=== PATIENT | female | born 1930 | race Caucasian/White ===

== ENCOUNTER 2018-05-29 14:30 | Inpatient (IN) | payer MEDICARE, OTHER ==
[2018-05-29] MEDS ORDERED: Levofloxacin 750 MG IVPREMIX(* 750 MG/150 ML BAG IVPB ONE (14:45)
[2018-05-29] MEDS ORDERED: cefTRIAXone(*) 1 GM in NS 0.9% 50 ML* 50 ML IVPB ONE (14:45)
[2018-05-29] MEDS ORDERED: NS 0.9% 1000 ML** 1,000 ML IV ONE (14:47)
[2018-05-29 15:09] LABS: ABS Basophils 0.1 10^3/ul (0-0.2); ABS Eosinophils 0.1 10^3/ul (0-0.6); ABS Lymphocytes 2.3 10^3/ul (1.0-4.8); ABS Neutrophils 12.2 10^3/ul (1.5-7.7); ABS Nucleated RBC 0 10^3/ul; Eosinophil % 0.6 %; Hematocrit 40 % (33-41); Hemoglobin 13.3 g/dL (12.0-16.0); Lymphocyte % 14.8 %; Mean Corpuscular HGB Conc 34 g/dL (31-36); Mean Corpuscular Hemoglobin 31 pg (27-31); Mean Corpuscular Volume 94 fL (80-97); Mean Platelet Volume 6.9 fL (7.4-10.4); Nucleated Red Blood Cells % 0; Platelet Count 393 10^3/uL (150-450); Red Blood Count 4.23 10^6 /uL (3.70-4.87); Red Cell Distribution Width 13 % (10.5-15); White Blood Count 15.7 10^3/uL (3.5-10.8)
--- NOTE | 2018-05-29 15:12 | ED ---
Shortness of Breath - HPI Summary HPI Summary: This patient is an 87 year old F brought in by EMS with a chief complaint of SOB since yesterday. Patient reports back pain, diaphoresis, and weakness. Patient denies CP or palpitations. The patient is normally very active, but is now weak and tired easily. She has been using her husbands inhaler to treat her breathing difficulties. No PMHx asthma, COPD, CHF. - History of Current Complaint Chief Complaint: EDShortnessOfBreath Time Seen by Provider: 05/29/18 14:39 Hx Obtained From: Patient, EMS Onset/Duration: Gradual Onset, Lasting Days Dyspnea At: Rest Associated Signs & Symptoms: Diaphoresis - Allergy/Home Medications Allergies/Adverse Reactions: Allergies Allergy/AdvReac Type Severity Reaction Status Date / Time No Known Allergies Allergy Verified 05/29/18 14:49 Home Medications: Home Medications Amiodarone TAB* [Cordarone TAB*] 200 mg PO DAILY 05/29/18 [History Confirmed 08/11] Ascorbic Acid TAB* [Vitamin C TAB*] 500 mg PO DAILY 05/29/18 [History Confirmed 05/29/18] Aspirin 81 mg CHEW TAB* [Aspirin Low Dose TAB*] 81 mg PO DAILY 05/29/18 [ History Confirmed 05/29/18] Cholecalciferol TAB* [Vitamin D TAB*] 2,000 units PO DAILY 05/29/18 [History Confirmed 05/29/18] Furosemide TAB* [Lasix TAB*] 20 mg PO DAILY 05/29/18 [History Confirmed 05/29/18 ] Garlic 200 mg PO DAILY 05/29/18 [History Confirmed 05/29/18] Garlic [Odorless Garlic] 300 mg PO DAILY 05/29/18 [History Confirmed 05/29/18] Isosorbide Dinitrate TAB* [Isordil TAB*] 10 mg PO BID 05/29/18 [History Confirmed 05/29/18] Krill/Om-3/Dha/Epa/Phospho/Ast [Krill Oil 500 mg] 1 cap PO DAILY 05/29/18 [ History Confirmed 05/29/18] Mirabegron (NF) [Myrbetriq (NF)] 50 mg PO DAILY 05/29/18 [History Confirmed 08/11] Multivitamins/Minerals TAB* [Theragran/minerals TAB*] 1 tab PO DAILY 05/29/18 [ History Confirmed 05/29/18] Potassium Chloride LIQUID* [Klor-Con LIQUID*] 20 meq PO DAILY 05/29/18 [History Confirmed 05/29/18] Ubidecarenone [Coq10] 100 mg PO DAILY 05/29/18 [History Confirmed 05/29/18] dilTIAZem HCl [Dilt-Xr] 240 mg PO DAILY 05/29/18 [History Confirmed 05/29/18] PMH/Surg Hx/FS Hx/Imm Hx Cardiovascular History: Denies: Hx Congestive Heart Failure Respiratory History: Denies: Hx Asthma, Hx Chronic Obstructive Pulmonary Disease (COPD) Musculoskeletal History: Reports: Hx Scoliosis Infectious Disease History: No Infectious Disease History: Denies: Traveled Outside the [place] in Last 30 Days - Family History Known Family History: Positive: Non-Contributory - Social History Lives: With Family Review of Systems Positive: Skin Diaphoresis Positive: Shortness Of Breath Positive: Myalgia - back pain Positive: Weakness All Other Systems Reviewed And Are Negative: Yes Physical Exam - Summary Physical Exam Summary: VITAL SIGNS: Reviewed. GENERAL: Patient is a well-developed and nourished female who is lying comfortable in the stretcher. Patient is in acute respiratory distress. She is unable to speak in full sentences. HEAD AND FACE: No signs of trauma. No ecchymosis, hematomas or skull depressions. No sinus tenderness. EYES: PERRLA, EOMI x 2, No injected conjunctiva, no nystagmus. EARS: Hearing grossly intact. Ear canals and tympanic membranes are within normal limits. MOUTH: Oropharynx within normal limits. NECK: Supple, trachea is midline, no adenopathy, no JVD, no carotid bruit, no c- spine tenderness, neck with full ROM. CHEST: Symmetric, no tenderness at palpation LUNGS: Clear to auscultation bilaterally. Bilateral crackles and decreased breath sounds. O2 sat in the upper 80s. CVS: Regular rate and rhythm, S1 and S2 present, no murmurs or gallops appreciated. ABDOMEN: Soft, non-tender. No signs of distention. No rebound no guarding, and no masses palpated. Bowel sounds are normal. EXTREMITIES: FROM in all major joints, no edema, no cyanosis or clubbing. NEURO: Alert and oriented x 3. No acute neurological deficits. Speech is normal and follows commands. SKIN: Diaphoretic, clammy. Triage Information Reviewed: Yes Vital Signs On Initial Exam: Initial Vitals Temp Pulse Resp BP Pulse Ox 97.5 F 98 30 195/107 93 05/29/18 14:32 05/29/18 14:32 05/29/18 14:32 05/29/18 14:32 05/29/18 14:32 Vital Signs Reviewed: Yes Diagnostics - Vital Signs Vital Signs Temp Pulse Resp BP Pulse Ox 05/29/18 14:32 97.5 F 98 30 195/107 93 - Laboratory Lab Results: Lab Results 05/29/18 05/29/18 Range/Units 14:42 14:54 WBC 15.7 H (3.5-10.8) 10^3/uL RBC 4.23 (3.70-4.87) 10^6 /uL Hgb 13.3 (12.0-16.0) g/dL Hct 40 (33-41) % MCV 94 (80-97) fL MCH 31 (27-31) pg MCHC 34 (31-36) g/dL RDW 13 (10.5-15) % Plt Count 393 (150-450) 10^3/uL MPV 6.9 L (7.4-10.4) fL Neut % (Auto) 77.8 % Lymph % (Auto) 14.8 % Leslie % (Auto) 6.2 % Eos % (Auto) 0.6 % Baso % (Auto) 0.6 % Absolute Neuts (auto) 12.2 H (1.5-7.7) 10^3/ul Absolute Lymphs (auto) 2.3 (1.0-4.8) 10^3/ul Absolute Monos (auto) 1.0 H (0-0.8) 10^3/ul Absolute Eos (auto) 0.1 (0-0.6) 10^3/ul Absolute Basos (auto) 0.1 (0-0.2) 10^3/ul Absolute Nucleated RBC 0 10^3/ul Nucleated RBC % 0 ABG pH 7.34 L (7.35-7.45) ABG pCO2 41 (35-45) mmHg ABG pO2 83 (80-100) mmHg ABG HCO3 22.2 (19-31) mmol/L ABG O2 Saturation 98.2 H (94.0-98.0) % ABG Base Excess -3.5 L (-2.0-2.0) mmol/L Result Diagrams: 05/29/18 14:54 05/29/18 14:54 Lab Statement: Any lab studies that have been ordered have been reviewed, and results considered in the medical decision making process. - Radiology CXR Radiology Interpretation Completed By: Radiologist Summary of Radiographic Findings: Interval appearance of bilateral patchy lung densities could be seen in the. setting of pulmonary edema or multifocal pneumonia. ED physician has reviewed this report. - EKG 14:37 Cardiac Rate: NL - 98 bpm EKG Rhythm: Sinus Rhythm Summary of EKG Findings: LBBB Course/Dx - Course Assessment/Plan: Patient is an 87-year-old female who presents to the emergency department via ambulance with chief complaint of shortness of breath. Patient reports that shes been having these symptoms for the last couple days. The patient has been using her husbands albuterol for the last couple days with no improvement of symptoms. She reports no history of COPD, asthma, or CHF. In the ED course the patient is very short of breath and unable to speak in full sentences. Patient has bilateral crackles. Initially the patient was placed in the facemask and placed on a monitor. The patient continues to have shortness of breath therefore I placed the patient in a BiPAP machine. The patient still alert and oriented 3. Test results shows a the services of 15.7 , PTT of 25.7, d-dimer is 492, glucose 180, CRP 126 and BNP of 960. The chest x -ray impression: Interval appearance of bilateral patchy lung densities could be seen in the. setting of pulmonary edema or multifocal pneumonia. I suspect that the patient also has pneumonia therefore I placed the patient on Levaquin and Rocephin, I gave Lasix since I believe that the patient also has a CHF exacerbation. I discussed my physical exam, findings and test results with Dr. Alfredo from the hospitalist services and he agrees to admit patient to his services. Patient is hemodynamically stable alert and oriented x 3. - Diagnoses Provider Diagnoses: Bilateral pneumonia, CHF exacerbation, Respiratory distress, Elevated troponin - Physician Notifications Discussed Care of Patient With: Marek Alfredo Time Discussed With Above Provider: 16:10 Instructed by Provider To: Admit As Inpatient - Critical Care Time Critical Care Time: 75-104 min Discharge - Sign-Out/Discharge Documenting (check all that apply): Patient Departure - admission Patient Received Moderate/Deep Sedation with Procedure: No - Discharge Plan Condition: Fair Disposition: ADMITTED TO [facility] - Billing Disposition and Condition Condition: FAIR Disposition: Admitted to [facility] - Attestation Statements Document Initiated by Scribe: Yes Documenting Scribe: Alan Butt Provider For Whom Scribe is Documenting (Include Credential): Lukasz Martinez MD Scribe Attestation: Alan Tellez, scribed for Lukasz Martinez MD on 05/29/18 at 1830. Scribe Documentation Reviewed: Yes Provider Attestation: The documentation as recorded by the Alan torres accurately reflects the service I personally performed and the decisions made by Lukasz weber MD Status of Scribe Document: Viewed
[2018-05-29 15:17] LABS: Activated Partial Thrombo Time 25.7 seconds (26.0-36.3); INR 0.97 (0.77-1.02)
[2018-05-29 15:26] LABS: ALT 30 U/L (7-52); AST 31 U/L (13-39); Albumin/Globulin Ratio 1.1 (1-3); Alkaline Phosphatase 85 U/L (34-104); Anion Gap 11 mmol/L (2-11); BUN/Creatinine Ratio 22.1 (8-20); Blood Urea Nitrogen 15 mg/dL (6-24); C Reactive Protein 126.96 mg/L (<8.01); CO2 Carbon Dioxide 23 mmol/L (22-32); Calcium 9.3 mg/dL (8.6-10.3); Chloride 104 mmol/L (101-111); Creatine Kinase 66 U/L (10-223); EGFR African American 99.5 (>60); EGFR Non-African American 82.2 (>60); Globulin 3.6 g/dL (2-4); Glucose 180 mg/dL (70-100); Potassium 4.2 mmol/L (3.5-5.0); Sodium 138 mmol/L (135-145); Total Protein 7.6 g/dL (6.4-8.9)
[2018-05-29 15:30] LABS: CKMB ng/mL 2.2 ng/mL (0.6-6.3)
[2018-05-29 15:32] LABS: Troponin I 0.04 ng/mL (<0.04)
[2018-05-29] MEDS ORDERED: Furosemide IV* 10 MG/ML VIAL (40 MG) IV ONE (15:33)
[2018-05-29] MEDS ORDERED: Aspirin 81 mg CHEW TAB* 81 MG TAB.CHEW PO ONE (15:36)
[2018-05-29 17:38] LABS: Magnesium 2.1 mg/dL (1.9-2.7)
[2018-05-29] MEDS: Amiodarone TAB* 200 MG PO SCH (19:54)
[2018-05-29] MEDS: Metoprolol Tartrate TAB* 25 MG PO SCH ×2 (19:54→23:16)
[2018-05-29] MEDS: Enoxaparin(*) 40 MG/0.4 ML SYR SUBCUT SCH (19:56)
[2018-05-29] MEDS ORDERED: Dextrose 50% Syringe 50 ML* 25 GM/50 ML SYRINGE IV PUSH PRN (20:00)
[2018-05-29 20:33] LABS: Influenza A Molecular NEGATIVE (Negative); Influenza B Molecular NEGATIVE (Negative)
[2018-05-29] MEDS ORDERED: Furosemide IV* 10 MG/ML VIAL (40 MG) IV SCH (21:00)
[2018-05-29 21:01] LABS: Troponin I 0.66 ng/mL (<0.04)
[2018-05-29] MEDS: PTO: Mirabegron (NF) 50 MG TAB PO SCH (22:01)
[2018-05-29] MEDS: Isosorbide Dinitrate TAB* 10 MG PO SCH (22:07)
--- NOTE | 2018-05-29 22:55 | HP ---
HISTORY AND PHYSICAL: DATE OF ADMISSION: 05/29/18 ATTENDING PROVIDER: Marek Alfredo MD PRIMARY CARE PROVIDER: Dr. Juno Silva. OUTPATIENT BOILER TUBE REAMER: Dr. Julio C Calvert. CHIEF COMPLAINT: Shortness of breath. HISTORY OF PRESENT ILLNESS: Yesenia Rose is an 87-year-old female with past medical history of hypertension, arrhythmia (unknown) but recently 3 months ago started on amiodarone 200 mg daily. She was in her usual state of health but had some poor sleep the night prior to admission and just was not quite feeling right. On the day of admission, she had progressive shortness of breath that seems to come on rather suddenly though she is a somewhat unclear historian on this matter. She denies any fevers, but did have chills this morning. No sick contacts. She did get a flu shot. She tried to use her 's albuterol inhaler and that gave her a little bit of relief. She denied any palpitations or chest pain. No nausea, vomiting. History is somewhat limited that she is currently on a CPAP mask, but she reports that she may have felt diaphoretic. Upon presentation to the [facility] Room, blood pressure 195/107, was satting 93% on room air, put on 10 L oxygen given her respiratory rates in the mid 30s and increased work of breathing. Reportedly in the field, she was 84% on room air. She was put on BiPAP with some relief. She had labs, which indicated leukocytosis of 15.7, elevated D-dimer of 492, elevated BNP of 960, elevated CRP of 126.9. Troponin 0.04. Glucose of 180. She had an ABG, this was prior to BIPAP, with a pH of 7.34, pCO2 of 41, pO2 of 83, bicarb of 22. She had a chest x-ray. Images not currently available as PACS is down, but Radiology impression of an overall appearance of bilateral patchy lung densities , could be seen in the setting of pulmonary edema or multifocal pneumonia. She was started on ceftriaxone and Levaquin, given 40 mg of IV Lasix and referred to hospitalist service for admission for acute hypoxic respiratory failure. She follows up with Dr. Julio C Calvert, her mis manager, last seen about 6 weeks. Last echo-cardiogram was approximately 6 months ago, but then she also reports that there has been some concern about what sounds like a potential aortic aneurysm and had a possible HANG, it sounds like about 1 month ago that was reportedly unconcerning with plan to repeat in about 6 months. She denies any chest pain, radiation to the back. No jaw pain. No numbness or tingling down the arms. She denies any abdominal pain, headaches, change in her weight though she does not record it. There is no leg edema. Denies any orthopnea. She said she is always tired and fatigued though that has not changed. She said she has sometimes little bit of swelling in her legs but that is also chronic over the last 10 years. She last saw Dr. Silva quite a while ago, it sounds like. Her A1c from 08/28/17 was 6.1. She denies knowledge of any congestive heart failure history, atrial fibrillation, any discussions potentially of anticoagulation. Also additional workup in the emergency room showed EKG with a left bundle-branch block. Prior was from 2011, which showed first-degree AV block. PAST MEDICAL HISTORY: Known past medical history is hypertension and potential arrhythmia ?AFib. MEDICATIONS: Include: 1. Diltiazem 240 mg daily. 2. Coenzyme Q10 100 mg p.o. daily. 3. Klor-Con 20 mEq p.o. daily. 4. Multivitamin 1 tab p.o. daily. 5. Myrbetriq 50 mg p.o. daily. 6. Krill oil 500 mg p.o. daily. 7. Isosorbide dinitrate 20 mg p.o. daily. 8. Garlic 200 mg p.o. daily. 9. Lasix 20 mg p.o. daily. 10. Cholecalciferol 2000 units p.o. daily. 11. Aspirin 81 mg daily. 12. Amiodarone 200 mg p.o. daily. 13. Ascorbic acid 500 mg p.o. daily. ALLERGIES: No known drug allergies. FAMILY HISTORY: Her mother had heart disease and CVAs, at age 89. Her father also of heart disease, age 77. Her brother of Parkinson's disease, age 85. Another brother had heart disease, at age 87. One sister at age 90 with end-stage renal disease. SOCIAL HISTORY: She is a never smoker, never drinker and no drug use. 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 She desires to be a DNR/DNI and her medical surrogate, she desires to be her daughter, Ioana Milton. REVIEW OF SYSTEMS: A complete 14-point review of systems is negative except as per HPI. She denies any palpitations, bladder and bowel movements, headaches, vision changes, long car rides, air travel, pain behind her legs. PHYSICAL EXAMINATION GENERAL APPEARANCE: No acute distress, but currently on a CPAP. VITAL SIGNS: Temperature 97.5, pulse rate 98, respiratory rate 30. Initially satting 84% on room air in the field and 97% on BiPAP 10/5. Blood pressure initially 195/107, currently 152/85. HEENT: Normocephalic, atraumatic. Pupils equally round and reactive to light. Extraocular movements intact. No scleral icterus. NECK: Supple. LUNGS: With bilateral rales at the bases. CARDIOVASCULAR: There is a 2/6 systolic ejection murmur, loudest at the right upper sternal border. No rubs or gallops. ABDOMEN: Soft, nontender, nondistended. No rebound, no guarding. No Mills's sign. EXTREMITIES: Warm and well perfused. No peripheral edema. NEUROLOGIC: Moving all extremities. Cranial nerves II through XII intact. Strength and sensation intact. SKIN: No lesions, no rashes. DIAGNOSTIC STUDIES/LAB DATA: White count 15.7, hemoglobin 13.3, hematocrit 40 , platelets 393. INR 0.97. D-dimer 492. ABG: pH 7.34, pCO2 41, pO2 83, bicarb 22.2. Sodium 138, potassium 4.2, chloride 104, carbon dioxide 23, BUN 15, creatinine 0.68, glucose 180, lactic acid 1.7, calcium 9.3. Total bilirubin 0.5, AST 31, ALT 30 , alk phos 85. Troponin 0.04. CRP 126.9. BNP 960. Albumin 4.0. Imaging: Chest x-ray images not currently available but impression by the radiologist of an overall appearance of bilateral patchy lung densities, could be seen in the setting of pulmonary edema or multifocal pneumonia. EKG with normal sinus rhythm, left bundle-branch block, QTc 514. Last for comparison was 2001with first-degree AV block. ASSESSMENT AND PLAN: Ms. Yesenia Rose is an 87-year-old female with past medical history of hypertension and unknown arrhythmia but recently started 3 months ago on amiodarone, presenting with acute hypoxic respiratory failure, evidence of congestive heart failure, also with leukocytosis. Some chills and bilateral patchy infiltrates, cannot exclude pneumonia, status post ceftriaxone , Levaquin in the emergency room. Continue ceftriaxone here. Get sputum cultures, legionella urine antigen, Strep pneumoniae, and urine antigen. Follow up blood cultures. She has gotten 40 of IV Lasix. She is going to continue 40 mg IV Lasix again later tonight and tomorrow morning. Strict I's and O's, daily weights. Request records from Dr. Julio C Calvert's office. She is going to get another echocardiogram tomorrow. She is currently requiring BiPAP. Hopefully with further diuresis, she can downgrade to OxyMask or nasal cannula. There is a consideration for possible, in the setting of relatively recent amiodarone administration, in the differential would include amiodarone pulmonary toxicity, but we will follow her clinical course with diuretics and antibiotics. Her D-dimer is elevated and could consider pulmonary embolism in the differential given the relatively acute nature of her symptoms. This will be further corroborated by any evidence of right heart strain on echocardiogram. She denies any long travel, history of clots, air flights, or immobility. For her elevated troponin, trend that q.4 hours x2 or till peak. Continue on telemetry. I am adding a magnesium level. No evidence of atrial fibrillation here. Request former EKGs from Dr. Calvert's office as well. For her hypertension, continue her diltiazem 240 mg, her isosorbide dinitrate 20 mg and the increased diuretics as above. We will continue her home aspirin 81 mg daily. She does attest that she had a left heart cath in the 70s with clear coronaries, but does have chronic changes with the left-bundle branch block on EKG and evidence of CHF obviously. She is a DNR/DNI. We will fill MOL[facility] paper with her. Medical surrogate is Ioana Milton. She can eat a heart healthy diet, putting her on Lovenox, DVT prophylaxis. [id number]/[facility] #: [id number] [facility]
[2018-05-29] MEDS ORDERED: Atorvastatin* 80 MG TAB PO ONE (23:00)
[2018-05-29] MEDS: Insulin LISPRO* 1 UNITS UNIT SUBCUT SCH (23:16)
[2018-05-30 02:54] LABS: Urine Appearance Cloudy; Urine Bacteria Absent (Absent); Urine Bilirubin Negative (Negative); Urine Blood 1+ (Negative); Urine Color Yellow; Urine Glucose Negative (Negative); Urine Ketones Negative (Negative); Urine Nitrite Negative (Negative); Urine Protein Negative (Negative); Urine Red Blood Cell 1+(3-5/hpf) (Absent); Urine Specific Gravity 1.011 (1.010-1.030); Urine Squamous Epithelial Cell Present (Absent); Urine Urobilinogen Negative (Negative); Urine White Blood Cell 3+(>20/hpf) (Absent)
[2018-05-30 05:37] LABS: ABS Basophils 0 10^3/ul (0-0.2); ABS Eosinophils 0 10^3/ul (0-0.6); ABS Lymphocytes 0.8 10^3/ul (1.0-4.8); ABS Monocytes 0.9 10^3/ul (0-0.8); ABS Neutrophils 8.2 10^3/ul (1.5-7.7); ABS Nucleated RBC 0 10^3/ul; Eosinophil % 0.2 %; Hematocrit 32 % (33-41); Hemoglobin 11.1 g/dL (12.0-16.0); Lymphocyte % 7.9 %; Mean Corpuscular HGB Conc 35 g/dL (31-36); Mean Corpuscular Hemoglobin 32 pg (27-31); Mean Corpuscular Volume 93 fL (80-97); Mean Platelet Volume 6.7 fL (7.4-10.4); Nucleated Red Blood Cells % 0; Platelet Count 277 10^3/uL (150-450); Red Blood Count 3.46 10^6 /uL (3.70-4.87); Red Cell Distribution Width 13 % (10.5-15)
[2018-05-30 05:55] LABS: Anion Gap 8 mmol/L (2-11); BUN/Creatinine Ratio 22.5 (8-20); Blood Urea Nitrogen 16 mg/dL (6-24); CO2 Carbon Dioxide 28 mmol/L (22-32); Calcium 8.4 mg/dL (8.6-10.3); Chloride 103 mmol/L (101-111); Cholesterol 145 mg/dL; EGFR African American 94.7 (>60); EGFR Non-African American 78.2 (>60); Glucose 102 mg/dL (70-100); HDL Cholesterol 60.2 mg/dL; LDL Cholesterol 71 mg/dL; Magnesium 1.9 mg/dL (1.9-2.7); Potassium 3.4 mmol/L (3.5-5.0); Sodium 139 mmol/L (135-145); Triglycerides 71 mg/dL
[2018-05-30 05:59] LABS: Troponin I 0.92 ng/mL (<0.04)
[2018-05-30] MEDS: Metoprolol Tartrate TAB* 25 MG PO SCH ×3 (06:42→17:20)
[2018-05-30] MEDS ORDERED: Magnesium Sulfate 1 GM IV* 1 GM/100 ML BAG IV ONE (07:14)
[2018-05-30] MEDS: Insulin LISPRO* 1 UNITS UNIT SUBCUT SCH ×4 (07:16→21:19)
[2018-05-30] MEDS: Furosemide IV* 10 MG/ML VIAL (40 MG) IV SCH (08:41)
[2018-05-30] MEDS: COENZYME Q10 100 MG PO SCH (08:42)
[2018-05-30] MEDS: Amiodarone TAB* 200 MG PO SCH (08:42)
[2018-05-30] MEDS: Aspirin 81 mg CHEW TAB* 81 MG TAB.CHEW PO SCH (08:42)
[2018-05-30] MEDS: Cholecalciferol TAB* 1000 UNITS PO SCH (08:42)
[2018-05-30] MEDS: Isosorbide Dinitrate TAB* 10 MG PO SCH ×2 (08:43→21:19)
[2018-05-30] MEDS: PTO: Mirabegron (NF) 50 MG TAB PO SCH (08:44)
[2018-05-30] MEDS ORDERED: Potassium Chloride LIQUID* 20 MEQ PACKET PO ONE (09:00)
[2018-05-30] MEDS ORDERED: Potassium Chloride LIQUID* 20 MEQ PACKET PO SCH (09:00)
[2018-05-30] MEDS ORDERED: Isosorbide Dinitrate TAB* 10 MG PO SCH (09:00)
--- NOTE | 2018-05-30 10:53 | PN ---
Subjective Date of Service: 05/30/18 Interval History: down to 3L, breathing much easier. Did not sleep much with the interruptions but denies orthopnea denies chest pain or chest pressure. Trop up to 0.92 then down. Records from Dr. Pearson: ECHO 04/08/17 with EF 60% G1DD, mod MR, Mod . Nuc stress 07/11/16 could not rule out small infarct area. LBBB chronic. Saw Dr. Pearson on 09/04/17. on amiodarone for PAT/ectopy since 06/18/17. Objective Active Medications: Amiodarone HCl (Cordarone Tab*) 200 mg PO DAILY [facility] Last Admin: 05/30/18 08:42 Dose: 200 mg Aspirin (Aspirin 81 Mg Chew Tab*) 81 mg PO DAILY [facility] Last Admin: 05/30/18 08:42 Dose: 81 mg Atorvastatin Calcium (Lipitor*) 80 mg PO 1700 [facility] Cholecalciferol (Vitamin D Tab*) 2,000 units PO DAILY [facility] Last Admin: 05/30/18 08:42 Dose: 2,000 units Coenzyme Q10 (Coenzyme Q10 (Nf)) 1 cap PO DAILY [facility] Last Admin: 05/30/18 08:42 Dose: Not Given Dextrose (D50w Syringe 50 Ml*) 12.5 gm IV PUSH .FOR FS < 60 - SS PRN PRN Reason: FS < 60 Enoxaparin Sodium (Lovenox(*)) 40 mg SUBCUT Q24H [facility] Last Admin: 05/29/18 19:56 Dose: 40 mg Furosemide (Lasix Iv*) 40 mg IV 2100 [facility] Last Admin: 05/29/18 22:04 Dose: 40 mg Furosemide (Lasix Iv*) 40 mg IV DAILY [facility] Last Admin: 05/30/18 08:41 Dose: 40 mg Ceftriaxone Sodium 1 gm/ (Sodium Chloride) 50 mls @ 200 mls/hr IVPB Q24H [facility] Insulin Human Lispro (Humalog*) 0 units SUBCUT ACHS [facility]; Protocol Last Admin: 05/30/18 07:16 Dose: Not Given Isosorbide Dinitrate (Isordil Tab*) 10 mg PO BID [facility] Last Admin: 05/30/18 08:43 Dose: 10 mg Metoprolol Tartrate (Lopressor Tab*) 25 mg PO Q6HR [facility] Last Admin: 05/30/18 06:42 Dose: 25 mg Mirabegron (Myrbetriq (Nf)) 50 mg PO DAILY [facility] Last Admin: 05/30/18 08:44 Dose: Not Given Potassium Chloride (Klor-Con Liquid*) 20 meq PO DAILY [facility] Vital Signs - 8 hr 05/30/18 05/30/18 05/30/18 04:38 07:25 07:37 Temperature 99.2 F 99.1 F Pulse Rate 64 58 Respiratory 18 20 18 Rate Blood Pressure 135/56 130/51 (mmHg) O2 Sat by Pulse 96 98 Oximetry Oxygen Devices in Use Now: Nasal Cannula, Venturi Mask Appearance: NAD, sitting in chair. Ears/Nose/Mouth/Throat: NL Teeth, Lips, Gums Neck: NL Appearance and Movements; NL JVP Respiratory: - - rales b/l base but much better compared to prior. Cardiovascular: - - 2/6 CHERRIE loudest LUSB Abdominal: NL Sounds; No Tenderness; No Distention, No Hepatosplenomegaly Extremities: No Edema, - Skin: No Rash or Ulcers Neurological: Alert and Oriented x 3, NL Sensation, NL Muscle Strength and Tone Nutrition: Taking PO's Result Diagrams: 05/30/18 05:32 05/30/18 05:32 Additional Lab and Data: Laboratory Results - last 24 hr 05/29/18 05/29/18 05/29/18 14:54 19:55 20:27 WBC RBC Hgb Hct MCV MCH MCHC RDW Plt Count MPV Neut % (Auto) Lymph % (Auto) [place] % (Auto) Eos % (Auto) Baso % (Auto) Absolute Neuts (auto) Absolute Lymphs (auto) Absolute Monos (auto) Absolute Eos (auto) Absolute Basos (auto) Absolute Nucleated RBC Nucleated RBC % Sodium Potassium Chloride Carbon Dioxide Anion Gap BUN Creatinine Est GFR ( Amer) Est GFR (Non-Af Amer) BUN/Creatinine Ratio Glucose POC Glucose (mg/dL) Hemoglobin A1c 5.7 H Calcium Magnesium Troponin I 0.66 H* Triglycerides Cholesterol LDL Cholesterol HDL Cholesterol Urine Color Urine Appearance Urine pH Ur Specific [place] Urine Protein Urine Ketones Urine Blood Urine Nitrate Urine Bilirubin Urine Urobilinogen Ur Leukocyte Esterase Urine WBC (Auto) Urine RBC (Auto) Ur Squamous Epith Cells Urine Bacteria Urine Glucose Influenza A (Rapid) Negative Influenza B (Rapid) Negative 05/29/18 05/29/18 05/30/18 22:03 23:03 02:09 WBC RBC Hgb Hct MCV MCH MCHC RDW Plt Count MPV Neut % (Auto) Lymph % (Auto) [place] % (Auto) Eos % (Auto) Baso % (Auto) Absolute Neuts (auto) Absolute Lymphs (auto) Absolute Monos (auto) Absolute Eos (auto) Absolute Basos (auto) Absolute Nucleated RBC Nucleated RBC % Sodium Potassium Chloride Carbon Dioxide Anion Gap BUN Creatinine Est GFR ( Amer) Est GFR (Non-Af Amer) BUN/Creatinine Ratio Glucose POC Glucose (mg/dL) 162 H Hemoglobin A1c Calcium Magnesium Troponin I 0.90 H* Triglycerides Cholesterol LDL Cholesterol HDL Cholesterol Urine Color Yellow Urine Appearance Cloudy Urine pH [address] [place] 1.011 Urine Protein Negative Urine Ketones Negative Urine Blood 1+ A Urine Nitrate Negative Urine Bilirubin Negative Urine Urobilinogen Negative Ur Leukocyte Esterase 2+ A Urine WBC (Auto) 3+(>20/hpf) A Urine RBC (Auto) 1+(3-5/hpf) A Ur Squamous Epith Cells Present A Urine Bacteria Absent Urine Glucose Negative Influenza A (Rapid) Influenza B (Rapid) 05/30/18 05/30/18 05/30/18 05:32 05:32 07:13 WBC 10.0 RBC 3.46 L Hgb 11.1 L Hct 32 L MCV 93 MCH 32 H MCHC 35 RDW 13 Plt Count 277 MPV 6.7 L Neut % (Auto) 82.7 Lymph % (Auto) 7.9 [place] % (Auto) 8.9 Eos % (Auto) 0.2 Baso % (Auto) 0.3 Absolute Neuts (auto) 8.2 H Absolute Lymphs (auto) 0.8 L Absolute Monos (auto) 0.9 H Absolute Eos (auto) 0 Absolute Basos (auto) 0 Absolute Nucleated RBC 0 Nucleated RBC % 0 Sodium 139 Potassium 3.4 L Chloride 103 Carbon Dioxide 28 Anion Gap 8 BUN 16 Creatinine 0.71 Est GFR ( Amer) 94.7 Est GFR (Non-Af Amer) 78.2 BUN/Creatinine Ratio 22.5 H Glucose 102 H POC Glucose (mg/dL) 112 H Hemoglobin A1c Calcium 8.4 L Magnesium 1.9 Troponin I 0.92 H* Triglycerides 71 Cholesterol 145 LDL Cholesterol 71 HDL Cholesterol 60.2 Urine Color Urine Appearance Urine pH Ur Specific [place] Urine Protein Urine Ketones Urine Blood Urine Nitrate Urine Bilirubin Urine Urobilinogen Ur Leukocyte Esterase Urine WBC (Auto) Urine RBC (Auto) Ur Squamous Epith Cells Urine Bacteria Urine Glucose Influenza A (Rapid) Influenza B (Rapid) 05/30/18 05/30/18 05/30/18 10:05 11:28 16:22 WBC RBC Hgb Hct MCV MCH MCHC RDW Plt Count MPV Neut % (Auto) Lymph % (Auto) [place] % (Auto) Eos % (Auto) Baso % (Auto) Absolute Neuts (auto) Absolute Lymphs (auto) Absolute Monos (auto) Absolute Eos (auto) Absolute Basos (auto) Absolute Nucleated RBC Nucleated RBC % Sodium Potassium Chloride Carbon Dioxide Anion Gap BUN Creatinine Est GFR ( Amer) Est GFR (Non-Af Amer) BUN/Creatinine Ratio Glucose POC Glucose (mg/dL) 105 H 132 H Hemoglobin A1c Calcium Magnesium Troponin I 0.80 H* Triglycerides Cholesterol LDL Cholesterol HDL Cholesterol Urine Color Urine Appearance Urine pH Ur Specific [place] Urine Protein Urine Ketones Urine Blood Urine Nitrate Urine Bilirubin Urine Urobilinogen Ur Leukocyte Esterase Urine WBC (Auto) Urine RBC (Auto) Ur Squamous Epith Cells Urine Bacteria Urine Glucose Influenza A (Rapid) Influenza B (Rapid) Microbiology and Other Data: Microbiology 05/29/18 14:59 Blood Venous Aerobic Blood Culture - Preliminary No Growth Day 1 05/29/18 14:59 Blood Venous Anaerobic Blood Culture - Preliminary No Growth Day 1 05/29/18 14:54 Blood Venous Aerobic Blood Culture - Preliminary No Growth Day 1 05/29/18 14:54 Blood Venous Anaerobic Blood Culture - Preliminary No Growth Day 1 05/29/18 22:40 Urine Legionella Urinary Antigen - Final Negative Legionella Antigen 05/29/18 22:40 Urine Streptococcus pneumoniae Ag Screen - Final Negative S. pneumo Antigen Assess/Plan/Problems-Billing Assessment: 87 yo female PMH LBBB, moderate , moderate MR, diastolic dysfunction, paroxysmal atrial tachycardia, HTN p/w with acute respiratory distress. Diaphoretic, chest pressure during episode. Initially required Bipap in ED. BNP 960, CXR with interstitial inflitrates: pulm edema vs multifocal pneumonia. Leukocytosis 15.7 but no fever or coughing. Improved with diuresis. ECHO with worse EF 45-50%. Troponin peaked 0.92, never chest pain. Suspect demand ischemia. - Patient Problems (1) Acute respiratory failure with hypoxia Current Visit: Yes Status: Acute Code(s): J96.01 - ACUTE RESPIRATORY FAILURE WITH HYPOXIA SNOMED Code(s): 23600825 Comment: Suspected Acute HFpEF exaccerbation. Improved with lasix (ALOT of UOP undocumented in ED). continue lasix 40mg IV (twice today). Given leukocytosis and could not rule out pna on CXR is on CFTX and azithromycin. Cultures negative so far. Consider stop abx tomorrow. Less likely amio pulm toxicity. Consider repeat CXR before discharge. (2) (HFpEF) heart failure with preserved ejection fraction Current Visit: Yes Status: Acute Code(s): I50.30 - UNSPECIFIED DIASTOLIC ( CONGESTIVE) HEART FAILURE SNOMED Code(s): 570827472 Comment: EF 45-50% down from prior 60%. No regional WMA described. plan as above. (3) Aortic stenosis Current Visit: Yes Status: Acute Code(s): I35.0 - NONRHEUMATIC AORTIC (VALVE ) STENOSIS SNOMED Code(s): 16085315 Comment: stable, moderate. (4) Leukocytosis Current Visit: Yes Status: Acute Code(s): D72.829 - ELEVATED WHITE BLOOD CELL COUNT, UNSPECIFIED SNOMED Code(s): 607235315 Comment: plan as above, resolved. (5) PAT (paroxysmal atrial tachycardia) Current Visit: Yes Status: Acute Comment: amiodarone 200mg daily. (6) HTN (hypertension) Current Visit: Yes Status: Acute Code(s): I10 - ESSENTIAL (PRIMARY) HYPERTENSION SNOMED Code(s): 90952822 Comment: on increased diurectics. Home Dilt 240mg held (in part because of amio interaction though she has been on this combo since May 2017 likely). Instead metoprolol 25mg q6 given also elevtated troponin. (7) Elevated troponin Current Visit: Yes Status: Acute Code(s): R74.8 - ABNORMAL LEVELS OF OTHER SERUM ENZYMES SNOMED Code(s): 442218455 Comment: BB, new statin. likely demand ischemia in setting of acute HFpEF exacerbation. Status and Disposition: medicine inpatient. possible d/c in next 24-48 hours.
[2018-05-30] MEDS: cefTRIAXone(*) 1 GM in NS 0.9% 50 ML* 50 ML IVPB SCH (12:10)
--- NOTE | 2018-05-30 13:38 | ECHO ---
Patient: JR POLLARD [facility] Rec#: [id number] : 1930 Date: 05/30/2018 Age: 87y Height: 161.5 cm / 63.6 in Weight: 68 kg / 149.9 lbs Sex: F BSA: 1.72 Room#: 435 Admit Date#: 05/29/2018 Type: Inpatient Referring: Marek Alfredo Reading: Filemon Parsons MD Clothing Examiner: Belen Robertson,DAVIDCS,RDMS CC: Vidal Pearson MD Transthoracic Echocardiogram Indication: SOB, CHF, ABN EKG BP: 135/56 HR: 65 Rhythm: NSR Findings History: HTN, arrhythmia Technical Comments: The study quality is fair. Left Ventricle: The left ventricular chamber size is normal. Mild to moderate concentric left ventricular hypertrophy is observed. Left ventricular systolic function is at the lower limits of normal. The estimated ejection fraction is 45-50%. Paradoxical septal wall motion secondary to conduction abnormality. There is an E to A reversal in the mitral valve flow pattern suggestive of diastolic dysfunction. Left Atrium: The left atrium is moderately dilated. Right Ventricle: The right ventricular chamber size and systolic function are within normal limits. Right Atrium: The right atrial cavity size is normal. Aortic Valve: The aortic valve leaflets are moderately thickened. Systolic excursion of the aortic valve cusps is reduced. There is aortic annular calcification. There is no evidence of aortic regurgitation. There is moderate aortic stenosis. The mean gradient of the aortic valve is 18 mmHg. The aortic valve area, by peak velocities, is calculated at 1 cm2. Mitral Valve: The mitral valve leaflets are mildly thickened. There is moderate mitral regurgitation. There is no evidence of mitral stenosis. Tricuspid Valve: The tricuspid valve leaflets are normal. There is mild to moderate tricuspid regurgitation. There is evidence of borderline pulmonary hypertension. Pulmonic Valve: The pulmonic valve structure is not well visualized. There is no evidence of pulmonic valve thickening. There is mild to moderate pulmonic regurgitation. Pericardium: There is no significant pericardial effusion. Aorta: The aortic root appears normal. There is no dilatation of the aortic arch. Pulmonary Artery: The main pulmonary artery is not well visualized. Venous: The inferior vena cava appears normal in size. There is a greater than 50% respiratory change in the inferior vena cava dimension. Summary: There was not any prior study for comparison. Conclusions The left ventricular chamber size is normal. Mild to moderate concentric left ventricular hypertrophy is observed. Left ventricular systolic function is at the lower limits of normal. The estimated ejection fraction is 45-50%. Paradoxical septal wall motion secondary to conduction abnormality. There is an E to A reversal in the mitral valve flow pattern suggestive of diastolic dysfunction. The left atrium is moderately dilated. The mean gradient of the aortic valve is 18 mmHg. The aortic valve area, by peak velocities, is calculated at 1 cm2. There is moderate aortic stenosis. There is moderate mitral regurgitation. There is mild to moderate tricuspid regurgitation. There is evidence of borderline pulmonary hypertension. There is mild to moderate pulmonic regurgitation. Measurements Name Value Normal Range RVIDd (AP) 2D 2.4 cm (0.9 - 2.6) RVDdMajor (2D) 3.2 cm (2.2 - 4.4) RAd ISD 4CH 4.5 cm (3.4 - 4.9) RA (A4C)W 4.6 cm (2.9 - 4.6) IVSd (2D) 1.4 cm (0.6 - 1) LVPWd (2D) 1.3 cm (0.6 - 1) LVIDd (2D) 4.7 cm (3.6 - 5.4) LVIDs (2D) 3.9 cm - LV FS (2D) 16 % (25 - 45) Aortic Annulus 2.2 cm (1.4 - 2.6) Ao root diameter (2D) 2.8 cm (2.1 - 3.5) Ascending Ao 2.5 cm (2.1 - 3.4) Aortic arch 3.1 cm (1.8 - 3.4) LA dimension (AP) 2D 3.7 cm (2.3 - 3.8) LAd ISD 4CH 5.2 cm (2.9 - 5.3) LA ISD 4CH W 4.6 cm (2.5 - 4.5) Name Value Normal Range LA ESV BP (A/L) index 46 ml/m2 - Name Value Normal Range MV E-wave Vmax 1 m/sec - MV deceleration time 219 msec - MV A-wave Vmax 1.2 m/sec - MV E:A ratio 0.8 ratio - LV septal e' Vmax 0.04 m/sec - LV lateral e' Vmax 0.06 m/sec - LV E:e' septal ratio 24 ratio - LV E:e' lateral ratio 17 ratio - Name Value Normal Range AV Vmax 2.8 m/sec - AV VTI 66 cm - AV peak gradient 31 mmHg - AV mean gradient 18 mmHg - LVOT diameter 2 cm - LVOT Vmax 0.9 m/sec - LVOT VTI 16 cm - LVOT peak gradient 3.2 mmHg - LVOT mean gradient 1 mmHg - DOI (VTI) 0.2 ratio - NADJA (continuity Vmax) 1 cm2 - NADJA (continuity VTI) 0.8 cm2 - Name Value Normal Range MV Vmax 1.2 m/sec - MV VTI 47 cm - MV peak gradient 6 mmHg - MV mean gradient 3 mmHg - MV PHT 109 msec - MR Vmax 5.2 m/sec - MR VTI 193 cm - MR volume (PISA) 25 ml - MR flow (PISA) 70 ml/sec - MR ERO 0.13 cm2 - MR PISA radius 0.6 cm - MR alias Vmax 31 cm/sec - MVA (PHT) 2 cm2 - MVA (continuity VTI) 1.3 cm2 - Name Value Normal Range TR Vmax 2.5 m/sec - TR peak gradient 25 mmHg - RAP 8 mmHg - RVSP 33 mmHg - IVC diameter 1.8 cm - Name Value Normal Range PV Vmax 1.1 m/sec - PV peak gradient 5 mmHg -
[2018-05-30] MEDS ORDERED: Furosemide IV* 10 MG/ML VIAL (40 MG) IV ONE (16:46)
[2018-05-30] MEDS ORDERED: Atorvastatin* 80 MG TAB PO SCH (17:00)
[2018-05-30] MEDS: Enoxaparin(*) 40 MG/0.4 ML SYR SUBCUT SCH (17:20)
[2018-05-31] MEDS: Metoprolol Tartrate TAB* 25 MG PO SCH ×3 (00:14→12:11)
[2018-05-31 06:24] LABS: ABS Basophils 0.1 10^3/ul (0-0.2); ABS Eosinophils 0.1 10^3/ul (0-0.6); ABS Lymphocytes 0.8 10^3/ul (1.0-4.8); ABS Monocytes 0.8 10^3/ul (0-0.8); ABS Neutrophils 6.5 10^3/ul (1.5-7.7); ABS Nucleated RBC 0 10^3/ul; Eosinophil % 0.7 %; Hematocrit 34 % (33-41); Hemoglobin 11.4 g/dL (12.0-16.0); Lymphocyte % 9.7 %; Mean Corpuscular HGB Conc 34 g/dL (31-36); Mean Corpuscular Hemoglobin 31 pg (27-31); Mean Corpuscular Volume 93 fL (80-97); Nucleated Red Blood Cells % 0; Platelet Count 326 10^3/uL (150-450); Red Blood Count 3.65 10^6 /uL (3.70-4.87); Red Cell Distribution Width 14 % (10.5-15); White Blood Count 8.3 10^3/uL (3.5-10.8)
[2018-05-31 06:44] LABS: BUN/Creatinine Ratio 21.1 (8-20); Calcium 8.7 mg/dL (8.6-10.3); EGFR African American 87.5 (>60); EGFR Non-African American 72.3 (>60); Potassium 3.3 mmol/L (3.5-5.0)
[2018-05-31] MEDS: Insulin LISPRO* 1 UNITS UNIT SUBCUT SCH ×2 (07:24→12:11)
[2018-05-31] MEDS: Amiodarone TAB* 200 MG PO SCH (08:58)
[2018-05-31] MEDS: Furosemide IV* 10 MG/ML VIAL (40 MG) IV SCH (08:58)
[2018-05-31] MEDS: Aspirin 81 mg CHEW TAB* 81 MG TAB.CHEW PO SCH (08:58)
[2018-05-31] MEDS: Cholecalciferol TAB* 1000 UNITS PO SCH (08:58)
[2018-05-31] MEDS: COENZYME Q10 100 MG PO SCH (08:58)
[2018-05-31] MEDS: Isosorbide Dinitrate TAB* 10 MG PO SCH (08:58)
[2018-05-31] MEDS: PTO: Mirabegron (NF) 50 MG TAB PO SCH (08:58)
[2018-05-31] MEDS ORDERED: Potassium Chloride LIQUID* 20 MEQ PACKET PO SCH (09:00)
[2018-05-31] MEDS ORDERED: Potassium Chlor TAB* 20 MEQ TAB.ER PO STA (11:02)
[2018-05-31 11:35] VITALS: BP 139/47
[2018-05-31] MEDS ORDERED: Azithromycin IV* 500 MG ADVAN VIAL/BAG IVPB SCH (12:00)
[2018-05-31] MEDS ORDERED: Azithromycin IV(*) 500 MG in NS 0.9% 250 ML* 250 ML IVPB SCH (12:00)
[2018-05-31] MEDS: cefTRIAXone(*) 1 GM in NS 0.9% 50 ML* 50 ML IVPB SCH (12:10)
--- NOTE | 2018-05-31 16:24 | DS ---
CC: Dr. Marek Alfredo; Dr. Lukasz Martinez * DISCHARGE SUMMARY: DATE OF ADMISSION: DATE OF DISCHARGE: 05/31/18 DISCHARGE CONDITION: Fair. DISCHARGE DISPOSITION: Home with 2 L O2 by nasal cannula. DISCHARGE DIAGNOSES: Are as follows: 1. Acute respiratory failure, likely due to diastolic congestive heart failure exacerbation, but could not rule out possible pneumonia. 2. History of hypertension. DISCHARGE MEDICATIONS: As follows: 1. Amiodarone 200 mg p.o. daily. 2. Aspirin 81 mg p.o. daily. 3. Cholecalciferol 2000 units p.o. daily. 4. Mirabegron 50 mg p.o. daily. 5. Potassium chloride 20 mEq p.o. daily. 6. Ubidecarenone or coenzyme Q10 100 mg p.o. daily. 7. Atorvastatin 40 mg p.o. daily. 8. Doxycycline 100 mg p.o. b.i.d. for 5 more days. 9. Garlic 500 mg p.o. daily. 10. Isosorbide dinitrate 20 mg p.o. b.i.d. 11. Krill oil 1 cap p.o. daily. 12. Floranex tablets 2 tabs p.o. daily for 8 days. 13. Metoprolol tartrate 25 mg p.o. q.6. 14. Multivitamins 1 tab p.o. daily. 15. Torsemide 20 mg p.o. daily. HISTORY OF PRESENT ILLNESS/HOSPITAL COURSE: The patient is an 87-year-old lady with a history of hypertension, arrhythmia, likely due to paroxysmal atrial fibrillation as per Dr. Alfredo's eval, based on her history given she is not in AFib at this time, who was reportedly in her usual state of health, but had some poor sleep the night prior to admission and was feeling unwell. She mentions that she was short of breath and was found to have mildly elevated troponin and an elevated BNP and it is thought that her acute respiratory failure is primarily due to her diastolic heart failure exacerbation. The chest x-ray unfortunately may also be suggestive of pneumonia and given that she had some leukocytoses and possible chills on admission, she was empirically treated for community-acquired pneumonia. She denied any recent hospitalizations, no sick contacts. She denied any cough, no increased sputum production and hence makes pneumonia less likely although could not be specifically ruled out. Prior to discharge, she had an ambulatory saturation done which suggested that she will need to be on 2 L nasal cannula. She feels well and would want to be discharged today for outpatient followup with her PCP. Her lasix will be changed to Torsemide and was advised dietary compliance. She had been advised to follow up and call her PCP within 3 days postdischarge and to keep track of her sodium intake. She had been advised that no more than 2 g per day of sodium and that if her food does not have any specific label, she was asked to look up the portion of the serving of the food to give her some idea as to what her average sodium intake would be. She was advised that if her symptoms resume or develop new ones or feel unwell for any reason, to call her PCP first. If her PCP cannot entertain her due to scheduling issues alone, she was advised to call [facility] if the issue is nonemergent. She was advised to call my office regarding any questions, concerns, or further clarifications regarding her discharge plans and her prescriptions and to take her medications as prescribed. REVIEW OF SYSTEMS: The patient currently denies any headaches, dizziness, fevers, chills, nausea, vomiting, chest pain. Mentioned that her short of breath has significantly improved since admission. Denies any increased cough, no sputum production, abdominal pain, diarrhea, constipation, pain and/or increased frequency in urination, myalgias, arthralgias, throat pain, or new skin lesions. The rest of the 14-point review of systems are otherwise unremarkable. PHYSICAL EXAMINATION: Shows the most recent vital signs of record with blood pressure of 139/47, 57 beats per minute heart rate, 16 per minute respiratory rate, saturating at 93% at room air. General Appearance: The patient is awake , alert, and oriented x3, not in acute distress. HEENT: Normocephalic, atraumatic. PERRLA. Extraocular muscles intact. Negative for icterus. Moist oral mucosa. Negative for throat erythema. Neck is soft, supple with no cervical lymphadenopathy. No JVD. Heart: S1, S2 within normal limits. Regular rate and rhythm. No murmurs, rubs, or gallops. Chest: Clear to auscultation bilaterally. Good air entry. No wheezes, rales, or rhonchi. Abdomen is soft, nondistended, nontender. Normoactive bowel sounds x4 quadrants. Extremities: No cyanosis, clubbing, or edema. Psychiatric: No active psychosis, depression, suicidal or homicidal ideation. Skin is warm to touch. The patient does not have PCP on file. The patient had been given information regarding [facility]. TIME SPENT: The total time spent evaluating the patient, reviewing pertinent data, and appropriate documentation is 30 minutes. [id number]/CPS #: [id number]
== END 2018-05-31 14:40 | disposition home or self-care (01) | DRG 291 ==
LOC: ED 14:30 → MEDTELE 17:08
PROVIDERS: ADMIT Internal Medicine; ATTEND Student in an Organized Health Care Education/Training Program
PROC: 5A09357 Assistance with Respiratory Ventilation, Less than 24 Consecutive Hours, Continuous Positive Airway Pressure (ICD-10-PCS; principal; 2018-05-29)
DX: I11.0 Hypertensive heart disease with heart failure (principal); J96.01 Acute respiratory failure with hypoxia; I47.1 Supraventricular tachycardia; I50.33 Acute on chronic diastolic (congestive) heart failure; I48.0 Paroxysmal atrial fibrillation; I44.0 Atrioventricular block, first degree; D72.829 Elevated white blood cell count, unspecified; Z66 Do not resuscitate; M41.9 Scoliosis, unspecified; I08.0 Rheumatic disorders of both mitral and aortic valves; I44.7 Left bundle-branch block, unspecified; I49.3 Ventricular premature depolarization; Z82.49 Family history of ischemic heart disease and other diseases of the circulatory system; Z82.3 Family history of stroke; Z79.82 Long term (current) use of aspirin; Z84.1 Family history of disorders of kidney and ureter; Z99.81 Dependence on supplemental oxygen
CPT/HCPCS: 36415; 71045; 80048; 80053; 80061; 81003; 81015; 82550; 82553; 82803; 83036; 83605; 83735; 83880; 84484; 85025; 85379; 85610; 85730; 86140; 87040; 87086; 87899; 93005; 93306; 99285; A9270-GY; J0456; J0696; J1650; J1940; J3475